=== PATIENT | female | born 1995 | race African-American/Black ===

== ENCOUNTER 2023-02-22 16:09 | Emergency (ER) | payer MEDICAID ==
[~2023-02-22] VITALS: Ht 167.6 cm; Wt 107.8 kg
[2023-02-22 20:15] LABS: Eosinophils # (auto) 0 10 ^3/uL (0-0.8); Lymphocytes # (auto) 2.1 10 ^3/uL (0.4-5.4); Mean Corpuscular Hemoglobin 26.3 pg (28.0-32.0); Monocytes # (auto) 0.6 10 ^3/uL (0-1.3); Neutrophils # (auto) 2.9 10 ^3/uL (1.6-8.6); White Blood Cell 5.7 10^3/uL (4.4-10.8)
[2023-02-22 20:17] LABS: Basophils # (auto) 0.1 10 ^3/uL (0-0.2); Basophils % (auto) 1.1 % (0.0-2.0); Eosinophils % (auto) 0.6 % (0.0-7.0); Hematocrit 34.1 % (36.0-46.0); Lymphocytes % (auto) 37.1 % (10.0-50.0); Mean Corpuscular Hgb Conc. 32.4 g/dL (32.0-36.0); Mean Corpuscular Volume 81.2 fL (80.0-100.0); Monocytes % (auto) 10.5 % (0.0-12.0); Neutrophils % (auto) 50.7 % (37.0-80.0); Nucleated Red Blood Cells % 0.1 %; Red Cell Distribution Width 15.1 % (11.8-14.3)
[2023-02-22 20:35] LABS: Acetaminophen < 2.0 UG/ML (10.0-20.0); Alanine Aminotransferase 14 U/L (7-40); Albumin 4.6 g/dL (3.2-4.8); Alkaline Phosphatase 58 U/L (46-116); Anion Gap 9 (5-15); Aspartate Aminotransferase 11 U/L (13-40); BUN/Creatinine Ratio 6.9 (10.0-20.0); Blood Alcohol < 3.0 mg/dL (<10); Blood Urea Nitrogen 7 mg/dL (9-23); Carbon Dioxide 24 mmol/L (20-30); Chloride 108 mmol/L (98-107); Glucose 82 mg/dL (74-106); Potassium 3.6 mmol/L (3.5-5.1); Sodium 141 mmol/L (136-145)
[2023-02-22 20:36] LABS: Bilirubin, Total 0.8 mg/dL (0.2-1.0); Total Protein 7.8 g/dL (5.7-8.2)
[2023-02-22 20:38] LABS: Thyroid Stimulating Hormone 2.37 uIU/mL (0.358-3.74)
[2023-02-22 20:39] LABS: Salicylate < 3.0 mg/dL (2.8-20.0)
[2023-02-22 21:45] VITALS: PULSE 74; RESP 16; O2SAT 99
[2023-02-23 06:38] LABS: Urine Bacteria FEW /hpf (None Seen); Urine Blood 2+ /uL (Negative); Urine Clarity HAZY (Clear); Urine Color Yellow (Yellow); Urine Hyaline Cast FEW /lpf (0 - 2); Urine Mucus MANY (None Seen); Urine Protein, UAD 1+ (Negative); Urine Urobilinogen Normal (Negative); Urine WBC 40 /hpf (0 - 5); Urine pH 5.5 (5.0-8.0)
[2023-02-23 06:55] LABS: Amphetamine Screen, Urine Neg (NEGATIVE); Barbiturate Scree,Urine Neg (NEGATIVE); Benzodiazephine Screen, Urine Neg (NEGATIVE); Cocaine Screen, Urine Neg (NEGATIVE); Opiate Scree,Urine Neg (NEGATIVE); Phencyclidine Screen, Urine Neg (NEGATIVE)
[2023-02-23 07:48] LABS: Cannabinoid Screen, Urine Pos (NEGATIVE)
[2023-02-23] MEDS ORDERED: hydrOXYzine 25 MG TAB or CAP PO PRN (10:30)
[2023-02-23] MEDS: FLUoxetine HCL 20 MG CAP PO SCH (11:02)
[2023-02-24 07:50] VITALS: PULSE 86; RESP 14; O2SAT 98
[2023-02-24] MEDS: FLUoxetine HCL 20 MG CAP PO SCH (11:06)
[2023-02-24 19:30] VITALS: PULSE 72; RESP 20; O2SAT 96
[2023-02-25] MEDS: FLUoxetine HCL 20 MG CAP PO SCH (10:33)
[2023-02-25 19:50] VITALS: PULSE 96; RESP 18; O2SAT 97
[2023-02-26 07:30] VITALS: PULSE 70; RESP 16; O2SAT 98
[2023-02-26] MEDS: FLUoxetine HCL 20 MG CAP PO SCH (11:14)
[2023-02-26 12:49] VITALS: BP 116/75; PULSE 83; RESP 18; TEMP 98.3; O2SAT 97
== END 2023-02-26 13:45 ==
LOC: ER 16:09
DX: R45.851 Suicidal ideations (principal); R10.2 Pelvic and perineal pain; J45.909 Unspecified asthma, uncomplicated
CPT/HCPCS: 36415; 80053; 80307; 80320; 80329; 81001; 84443; 84702; 85025

== ENCOUNTER 2023-03-13 19:37 | Emergency (ER) | payer MEDICAID ==
[~2023-03-13] VITALS: Ht 170.2 cm; Wt 108.0 kg
[2023-03-13 20:30] VITALS: BP 121/80; PULSE 108; RESP 16; O2SAT 97
[2023-03-13 20:58] LABS: Urine Bacteria NONE SEEN /hpf (None Seen); Urine Blood Negative /uL (Negative); Urine Clarity HAZY (Clear); Urine Color Yellow (Yellow); Urine Mucus FEW (None Seen); Urine Protein, UAD 1+ (Negative); Urine Specific Gravity 1.027 (1.001-1.035); Urine Urobilinogen Normal (Negative); Urine WBC 8 /hpf (0 - 5)
[2023-03-13 21:15] LABS: Hemoglobin 10.7 g/dL (12.2-16.2); Mean Corpuscular Hgb Conc. 32.1 g/dL (32.0-36.0); Mean Corpuscular Volume 81.4 fL (80.0-100.0); Red Cell Distribution Width 15.4 % (11.8-14.3)
[2023-03-13 21:16] LABS: Basophils # (auto) 0 10 ^3/uL (0-0.2); Basophils % (auto) 0.8 % (0.0-2.0); Eosinophils # (auto) 0 10 ^3/uL (0-0.8); Eosinophils % (auto) 0.7 % (0.0-7.0); Hematocrit 33.2 % (36.0-46.0); Lymphocytes # (auto) 1.4 10 ^3/uL (0.4-5.4); Lymphocytes % (auto) 25.1 % (10.0-50.0); Mean Corpuscular Hemoglobin 26.2 pg (28.0-32.0); Monocytes # (auto) 0.8 10 ^3/uL (0-1.3); Monocytes % (auto) 14.6 % (0.0-12.0); Neutrophils # (auto) 3.4 10 ^3/uL (1.6-8.6); Neutrophils % (auto) 58.8 % (37.0-80.0); Nucleated Red Blood Cells % 0.1 %; Red Blood Cells 4.08 10^6/uL (4.0-5.20); White Blood Cell 5.7 10^3/uL (4.4-10.8)
[2023-03-13 21:30] LABS: Alanine Aminotransferase 17 U/L (7-40); Alkaline Phosphatase 70 U/L (46-116); Anion Gap 7 (5-15); Aspartate Aminotransferase 20 U/L (13-40); Calcium 9.3 mg/dL (8.7-10.4); Carbon Dioxide 24 mmol/L (20-30); Chloride 106 mmol/L (98-107); Glucose 97 mg/dL (74-106); Lipase 53 U/L (12-53); Potassium 3.8 mmol/L (3.5-5.1); Sodium 137 mmol/L (136-145)
[2023-03-13 21:31] LABS: Albumin 4.6 g/dL (3.2-4.8); BUN/Creatinine Ratio 5.4 (10.0-20.0); Bilirubin, Total 0.2 mg/dL (0.2-1.0); Blood Urea Nitrogen < 5 mg/dL (9-23); Total Protein 7.8 g/dL (5.7-8.2)
[2023-03-13] MEDS ORDERED: NAPR-1334 PO (21:56)
== END 2023-03-14 00:11 | disposition home or self-care (01) ==
LOC: ER 19:37
DX: S16.1XXA Strain of muscle, fascia and tendon at neck level, initial encounter (principal); F12.90 Cannabis use, unspecified, uncomplicated; J45.909 Unspecified asthma, uncomplicated; X58.XXXA Exposure to other specified factors, initial encounter; Y93.89 Activity, other specified; Y92.89 Other specified places as the place of occurrence of the external cause; Y99.8 Other external cause status
CPT/HCPCS: 36415; 70450; 72125; 80053; 81001; 81025; 83690; 84484; 85025